=== PATIENT | female | born 1985 | race Caucasian/White ===

== ENCOUNTER 2018-09-09 07:06 | Emergency (ER) | payer OTHER ==
[~2018-09-09] VITALS: Ht 147.3 cm; Wt 46.7 kg
[~2018-09-09 07:06] MED LIST: ACETAMINOPHEN-1 EAC1 PO; CELEXA; CEPHALEXIN 500500 M3 PO; CLEOCIN HCL300 MG PO; DOXYCYCLINE 10100 MG PO; FLAGYL500 MG PO; FLEXERIL PO; HYDROCODONE-AP1 EAC6 PO; IBUPROFEN 800800 M1 PO; KEFLEX500 MG PO; LEXAPRO 10 MG T10 MG PO; MACROBID 100 M100 M1 PO; NAPROSYN500 MG PO; NORCO 5-325 TA1 EACH PO; PREDNISONE 10 M10 MG PO; PREDNISONE 20 M20 MG PO; PREDNISONE50 MG PO; SIMVASTATIN; VICODIN 5-3001 EACH PO; XANAX 0.5 MG0.5 M1 PO
[2018-09-09 07:16] VITALS: BP 131/87
[2018-09-09] MEDS ORDERED: NOHOMEMEDICATIONS (07:20)
[2018-09-09] MEDS ORDERED: HYDROCODON-ACE1 EAC7 PO (07:29)
[2018-09-09] MEDS ORDERED: AUGMENTIN 500-1 EACH PO (07:29)
== END 2018-09-09 07:39 | disposition home or self-care (01) ==
LOC: M.ERS 07:06
DX: H66.93 Otitis media, unspecified, bilateral (principal); F17.210 Nicotine dependence, cigarettes, uncomplicated; Z88.1 Allergy status to other antibiotic agents; Z88.2 Allergy status to sulfonamides; Z88.8 Allergy status to other drugs, medicaments and biological substances

== ENCOUNTER 2019-03-16 11:59 | Emergency (ER) | payer OTHER ==
[~2019-03-16] VITALS: Ht 149.9 cm; Wt 54.4 kg
[~2019-03-16 11:59] MED LIST changes: +AUGMENTIN 500-1 EACH PO; +HYDROCODON-ACE1 EAC7 PO; +NOHOMEMEDICATIONS
[2019-03-16 12:12] LABS: URINE BILIRUBIN NEGATIVE (Negative); URINE BLOOD 2+ (Negative); URINE CLARITY CLEAR; URINE COLOR YELLOW; URINE GLUCOSE-RANDOM NEGATIVE (Negative); URINE KETONES NEGATIVE (Negative); URINE LEUKOCYTES-REFLEX 1+ (Negative); URINE PROTEIN NEGATIVE (Negative)
[2019-03-16 12:13] LABS: URINE NITRITE-REFLEX POSITIVE (Negative)
[2019-03-16] MEDS ORDERED: LIORESAL 10 MG10 MG PO (12:16)
[2019-03-16] MEDS ORDERED: CELEXA40 MG PO (12:16)
[2019-03-16] MEDS ORDERED: LISINOPRIL10 MG PO (12:16)
[2019-03-16] MEDS ORDERED: TRAZODONE HCL100 MG PO (12:16)
[2019-03-16] MEDS ORDERED: ABILIFY20 MG PO (12:16)
[2019-03-16 12:20] LABS: BACTERIA-REFLEX >30 Many /HPF (None Seen); CASTS None Seen /LPF (None Seen); CRYSTALS None Seen /LPF (None Seen); HYALINE CASTS 0-3 Few /LPF (None Seen); MUCUS 0-3 Light strn/LPF (None Seen); SQUAMOUS 0-3 Few /LPF (0-3); URINE RBC 3-10 Few /HPF (0-2)
[2019-03-16 12:32] LABS: ABSOLUTE BASOPHILS 0.1 thou/uL (0.0-0.2); ABSOLUTE EOSINOPHILS 0.2 thou/uL (0.0-0.7); ABSOLUTE LYMPHOCYTES 2.2 thou/uL (0.8-5.3); ABSOLUTE MONOCYTES 0.5 thou/uL (0.0-1.2); ABSOLUTE NEUTROPHILS 4.5 thou/uL (1.6-8.1); EOSINOPHILS 2.2 %; HEMATOCRIT 41.2 % (37.0-47.0); HEMOGLOBIN 14.2 gm/dL (12.0-15.0); LYMPHOCYTES 29.1 %; MCHC 34.5 g/dL (28.0-37.0); MCV 89.9 fL (80.0-100.0); MONOCYTES 7.2 %; MPV 7.2 fl. (7.2-11.1); NUCLEATED RBCS 0 /100WBC; PLATELET COUNT* 451 thou/uL (150-400); POLYS 60.5 %; RBC 4.58 mil/uL (4.20-5.00); RDW-CV 13.7 % (10.5-14.5); WBC 7.5 thou/uL (4.0-11.0)
[2019-03-16 12:50] LABS: CALCIUM 9.1 mg/dL (8.5-10.1); CREATININE 0.7 mg/dL (0.6-1.3); POTASSIUM 3.6 mmol/L (3.5-5.1)
[2019-03-16 12:55] LABS: ALBUMIN 3.7 g/dL (3.4-5.0); TOTAL BILIRUBIN 0.4 mg/dL (<0.1-1.0); TOTAL PROTEIN 7.5 g/dL (6.4-8.2)
[2019-03-16 13:30] LABS: AMP/METHAMP POSITIVE (Negative); BARBITURATES Negative (Negative); BENZODIAZEPINES POSITIVE (Negative); COCAINE Negative (Negative); METHADONE Negative (Negative); OPIATES Negative (Negative); PCP Negative (Negative); THC POSITIVE (Negative)
[2019-03-16] MEDS ORDERED: IBUPROFEN 800800 MG PO (15:25)
[2019-03-16] MEDS ORDERED: AUGMENTIN 500-1 EACH PO ×2 (15:25→15:32)
[2019-03-16] MEDS ORDERED: ZOFRAN ODT4 MG PO ×2 (15:25→15:32)
[2019-03-16] MEDS ORDERED: IBUPROFEN 800800 M1 PO (15:32)
[2019-03-16 15:54] VITALS: BP 106/62
== END 2019-03-16 15:56 | disposition home or self-care (01) ==
LOC: M.ERS 11:59
PROVIDERS: Personal Emergency Response Attendant
DX: N39.0 Urinary tract infection, site not specified (principal); R42 Dizziness and giddiness; F17.210 Nicotine dependence, cigarettes, uncomplicated; F41.0 Panic disorder [episodic paroxysmal anxiety]; Z88.2 Allergy status to sulfonamides; Z88.1 Allergy status to other antibiotic agents; Z88.8 Allergy status to other drugs, medicaments and biological substances; Z87.442 Personal history of urinary calculi

== ENCOUNTER 2019-04-05 22:52 | Emergency (ER) | payer OTHER ==
[~2019-04-05] VITALS: Ht 147.3 cm; Wt 56.7 kg
[~2019-04-05 22:52] MED LIST changes: +ABILIFY20 MG PO; +CELEXA40 MG PO; +IBUPROFEN 800800 MG PO; +LIORESAL 10 MG10 MG PO; +LISINOPRIL10 MG PO; +TRAZODONE HCL100 MG PO; +ZOFRAN ODT4 MG PO
[2019-04-05] MEDS ORDERED: VISTARIL 25 MG25 M1 PO (23:05)
[2019-04-05] MEDS ORDERED: NORCO 5-325 TA1 EACH PO (23:07)
[2019-04-05] MEDS ORDERED: ELIMITE60 GM TOP (23:47)
[2019-04-05 23:51] VITALS: BP 128/93
== END 2019-04-05 23:55 | disposition home or self-care (01) ==
LOC: M.ERS 22:52
DX: T23.252A Burn of second degree of left palm, initial encounter (principal); X19.XXXA Contact with other heat and hot substances, initial encounter; Y93.89 Activity, other specified; Y92.89 Other specified places as the place of occurrence of the external cause; Y99.8 Other external cause status; F17.210 Nicotine dependence, cigarettes, uncomplicated; Z88.2 Allergy status to sulfonamides; Z88.8 Allergy status to other drugs, medicaments and biological substances

== ENCOUNTER 2019-07-18 21:26 | Emergency (ER) | payer OTHER ==
[~2019-07-18] VITALS: Ht 147.3 cm; Wt 52.2 kg
[~2019-07-18 21:26] MED LIST changes: +ELIMITE60 GM TOP; +VISTARIL 25 MG25 M1 PO
[2019-07-18] MEDS ORDERED: PREDNISONE 10 M10 M1 PO (21:36)
[2019-07-18] MEDS ORDERED: DIPHENHIST50 MG PO (21:36)
[2019-07-18 21:49] VITALS: BP 144/98
== END 2019-07-18 21:52 | disposition home or self-care (01) ==
LOC: M.ERS 21:26
DX: L25.9 Unspecified contact dermatitis, unspecified cause (principal); F41.0 Panic disorder [episodic paroxysmal anxiety]; F17.210 Nicotine dependence, cigarettes, uncomplicated; Z88.2 Allergy status to sulfonamides; Z88.1 Allergy status to other antibiotic agents; Z88.8 Allergy status to other drugs, medicaments and biological substances; Z87.442 Personal history of urinary calculi

== ENCOUNTER 2019-10-03 14:59 | Emergency (ER) | payer OTHER ==
[~2019-10-03] VITALS: Ht 147.3 cm; Wt 49.9 kg
[~2019-10-03 14:59] MED LIST changes: +DIPHENHIST50 MG PO; +PREDNISONE 10 M10 M1 PO
[2019-10-03] MEDS ORDERED: TYLENOL WITH CO1 TA1 PO (15:56)
[2019-10-03 16:19] VITALS: BP 137/96
== END 2019-10-03 16:21 | disposition home or self-care (01) ==
LOC: M.ERS 14:59
DX: S63.682A Other sprain of left thumb, initial encounter (principal); F17.210 Nicotine dependence, cigarettes, uncomplicated; Z87.442 Personal history of urinary calculi; Z88.2 Allergy status to sulfonamides; Z88.1 Allergy status to other antibiotic agents; W23.0XXA Caught, crushed, jammed, or pinched between moving objects, initial encounter; Y92.89 Other specified places as the place of occurrence of the external cause; Y93.89 Activity, other specified; Y99.8 Other external cause status

== ENCOUNTER 2020-02-22 23:56 | Inpatient (IN) | payer OTHER ==
[~2020-02-22] VITALS: Ht 147.3 cm; Wt 69.3 kg
[~2020-02-22 23:56] MED LIST changes: +TYLENOL WITH CO1 TA1 PO
[2020-02-23] VITALS (8 sets, daily range): BP systolic 106–132; BP diastolic 71–102
[2020-02-23 00:16] LABS: URINE BILIRUBIN NEGATIVE (Negative); URINE BLOOD TRACE (Negative); URINE COLOR YELLOW; URINE GLUCOSE-RANDOM NEGATIVE (Negative); URINE KETONES TRACE (Negative); URINE LEUKOCYTES-REFLEX NEGATIVE (Negative); URINE PROTEIN TRACE (Negative); URINE SPECIFIC GRAVITY 1.025 (1.005-1.030)
[2020-02-23 00:17] LABS: URINE NITRITE-REFLEX POSITIVE (Negative)
[2020-02-23 00:18] LABS: URINE CLARITY SL CLOUDY
[2020-02-23 00:30] LABS: SQUAMOUS 0-3 Few /LPF (0-3)
[2020-02-23 00:31] LABS: BACTERIA-REFLEX >30 Many /HPF (None Seen); CASTS None Seen /LPF (None Seen); CRYSTALS None Seen /LPF (None Seen); MUCUS 0-3 Light strn/LPF (None Seen); URINE RBC 3-10 Few /HPF (0-2); URINE WBC-REFLEX >25 Many /HPF (0-5); WBC CLUMPS Few (None Seen)
[2020-02-23 00:38] LABS: AMP/METHAMP POSITIVE (Negative); BARBITURATES Negative (Negative); BENZODIAZEPINES POSITIVE (Negative); COCAINE Negative (Negative); METHADONE Negative (Negative); OPIATES Negative (Negative); PCP Negative (Negative); THC POSITIVE (Negative)
[2020-02-23 00:48] LABS: ABSOLUTE BASOPHILS 0.1 thou/uL (0.0-0.2); ABSOLUTE EOSINOPHILS 0.1 thou/uL (0.0-0.7); ABSOLUTE LYMPHOCYTES 2.6 thou/uL (0.8-5.3); ABSOLUTE MONOCYTES 1.3 thou/uL (0.0-1.2); ABSOLUTE NEUTROPHILS 7.1 thou/uL (1.6-8.1); BASOPHILS 0.9 %; HEMATOCRIT 38.3 % (37.0-47.0); HEMOGLOBIN 13.3 gm/dL (12.0-15.0); LYMPHOCYTES 23.6 %; MCH 30.9 pg (26.0-34.0); MCHC 34.7 g/dL (28.0-37.0); MCV 89.3 fL (80.0-100.0); MONOCYTES 11.2 %; MPV 6.9 fl. (7.2-11.1); NUCLEATED RBCS 0 /100WBC; PLATELET COUNT* 522 thou/uL (150-400); POLYS 63.3 %; RBC 4.29 mil/uL (4.20-5.00); WBC 11.2 thou/uL (4.0-11.0)
[2020-02-23 00:56] LABS: CALCIUM 8.5 mg/dL (8.5-10.1); CREATININE 0.6 mg/dL (0.6-1.3); POTASSIUM 3.4 mmol/L (3.5-5.1)
[2020-02-23 01:00] LABS: ALBUMIN 3.3 g/dL (3.4-5.0); TOTAL BILIRUBIN 0.4 mg/dL (<0.1-1.0); TOTAL PROTEIN 7.3 g/dL (6.4-8.2)
[2020-02-23] MEDS ORDERED: CARAFATE 1 GM TA1 GM PO (01:17)
[2020-02-23] MEDS ORDERED: HYDROCODON-ACE1 EAC7 PO (01:28)
[2020-02-23] MEDS ORDERED: LEVAQUIN 500 M500 M3 PO (01:28)
[2020-02-23] MEDS ORDERED: PYRIDIUM200 MG PO (01:28)
[2020-02-24 05:29] LABS: ABSOLUTE BASOPHILS 0.1 thou/uL (0.0-0.2); ABSOLUTE EOSINOPHILS 0.2 thou/uL (0.0-0.7); ABSOLUTE LYMPHOCYTES 2.2 thou/uL (0.8-5.3); ABSOLUTE MONOCYTES 0.7 thou/uL (0.0-1.2); ABSOLUTE NEUTROPHILS 4.1 thou/uL (1.6-8.1); BASOPHILS 1.1 %; EOSINOPHILS 3.2 %; HEMATOCRIT 35.6 % (37.0-47.0); LYMPHOCYTES 30.3 %; MCH 30.7 pg (26.0-34.0); MCHC 33.7 g/dL (28.0-37.0); MONOCYTES 9.2 %; MPV 7.1 fl. (7.2-11.1); NUCLEATED RBCS 0 /100WBC; PLATELET COUNT* 473 thou/uL (150-400); POLYS 56.2 %; RBC 3.91 mil/uL (4.20-5.00); RDW-CV 13.3 % (10.5-14.5); WBC 7.2 thou/uL (4.0-11.0)
[2020-02-24 05:57] LABS: CALCIUM 8.2 mg/dL (8.5-10.1); CREATININE 0.6 mg/dL (0.6-1.3); POTASSIUM 3.9 mmol/L (3.5-5.1)
[2020-02-24 08:41] VITALS: BP 118/83
[2020-02-24 16:00] VITALS: BP 114/77
[2020-02-24 20:00] VITALS: BP 114/73
[2020-02-25] VITALS: BP 123/83
[2020-02-25 08:00] VITALS: BP 127/83
[2020-02-25] MEDS ORDERED: CEFUROXIME500 MG PO (12:22)
[2020-02-25] MEDS ORDERED: TYLENOL EXTRA500 MG PO (12:23)
[2020-02-25 12:26] VITALS: BP 127/83
[2020-02-25 16:13] VITALS: BP 130/95
[2020-02-25 20:46] VITALS: BP 130/80
[2020-02-26 04:07] LABS: ABSOLUTE EOSINOPHILS 0.3 thou/uL (0.0-0.7); ABSOLUTE LYMPHOCYTES 2.7 thou/uL (0.8-5.3); ABSOLUTE MONOCYTES 0.8 thou/uL (0.0-1.2); ABSOLUTE NEUTROPHILS 4.6 thou/uL (1.6-8.1); BASOPHILS 0.2 %; EOSINOPHILS 3.2 %; HEMATOCRIT 40.9 % (37.0-47.0); LYMPHOCYTES 31.8 %; MCH 30.6 pg (26.0-34.0); MCHC 34.3 g/dL (28.0-37.0); MCV 89.3 fL (80.0-100.0); MONOCYTES 9.3 %; NUCLEATED RBCS 0 /100WBC; POLYS 55.5 %; RBC 4.58 mil/uL (4.20-5.00); RDW-CV 13.1 % (10.5-14.5); WBC 8.4 thou/uL (4.0-11.0)
[2020-02-26 04:36] LABS: CALCIUM 9.5 mg/dL (8.5-10.1); CREATININE 0.7 mg/dL (0.6-1.3); POTASSIUM 3.9 mmol/L (3.5-5.1)
[2020-02-26 05:12] LABS: PLATELET COUNT* 583 thou/uL (150-400)
[2020-02-26 08:00] VITALS: BP 113/87
[2020-02-26 17:33] VITALS: BP 143/88
[2020-02-26 20:00] VITALS: BP 118/70
[2020-02-26 23:40] VITALS: BP 92/60
[2020-02-27 08:00] VITALS: BP 120/82
--- NOTE | 2020-02-27 12:01 | CON ---
[address] [address] CONSULTATION Name: LETY CAIN Room: [address] IN [place].#: [id number] Admission: 02/23/20 Attend Phys: Luca Cardenas Discharge: Date of : 87 Report #: [id number] THIS REPORT FOR: //name// cc: ZEINAB Bah family physician/PCP ZEINAB - Niurka family physician/PCP ~ THIS REPORT FOR: //name// CC: ZEINAB physician/PCP Luca Noonan DATE OF SERVICE: 02/26/2020 INFECTIOUS DISEASE CONSULTATION ATTENDING PHYSICIAN: Dr. Chaudhary. REASON FOR EVALUATION: Pyelonephritis secondary to Escherichia coli and has extended spectrum beta-lactamase production, also gonorrhea. HISTORY OF PRESENT ILLNESS: Chart reviewed, the patient examined. This 34-year-old with known history of renal lithiasis and also apparently bipolar disease, who was admitted to the emergency room on 02/23/2020 with complaints of right flank pain. She was evaluated and was noted to have some pyuria. Urine culture as noted above with multiple resistant Escherichia coli also had positive gonorrhea test. She was initially treated empirically with piperacillin, ceftriaxone. This has been transitioned to meropenem. She has some residual right-sided pain. Overall, she does feel improved. She has been afebrile. Denies significant pulmonary-related complaints. Imaging suggested there were no obstruction issues and perhaps a recently passed stone and asymmetrical enlargement of the right kidney with perinephric stranding. ALLERGIES: LISTED TO PROPOXYPHENE, CIPRO, SULFA, similarly more adverse drug effects. CURRENT MEDICATIONS: Include alprazolam, meropenem, temazepam, enoxaparin, hydrocodone, nicotine, pantoprazole, acetaminophen, ondansetron as needed. PAST MEDICAL HISTORY: As noted above, some renal lithiasis, history of tubal ligation, panic attacks, depression. SOCIAL HISTORY: Does use illicit drugs, smokes half pack a day, on occasion drinks alcohol. FAMILY HISTORY: Noncontributory. REVIEW OF SYSTEMS: Denies significant [place] [address] CONSULTATION Name: LETY CAIN Room: [address]#: [id number] Admission: 02/23/20 Attend Phys: Luca Cardenas Discharge: Date of : 87 Report #: [id number] PHYSICAL EXAMINATION: GENERAL: She appears somewhat chronically ill, undernourished, is pleasant, cooperative, in mild distress. VITAL SIGNS: Temperature 98.8, pulse 98, respirations 14, blood pressure 130/80. SKIN: Warm, dry. No rashes. HEENT: Normocephalic. Extraocular muscles intact. NECK: Supple. LUNGS: Diminished breath sounds. HEART: Regular. Borderline tachycardic. I do not appreciate any murmur. ABDOMEN: Soft. There are no peritoneal signs. Does have some right-sided CVA tenderness. GENITOURINARY AND RECTAL: Deferred. LABORATORY DATA: CBC from this morning, white count of 8.4, H and H 14.0 and 40.9, and platelets of 583. Electrolytes: Sodium 139, potassium 3.9, chloride 102, bicarbonate is 25, anion gap of 9, BUN and creatinine 6 and 0.7, estimated GFR of 96 and a negative chlamydia, JAZMIN in the urine. Has a positive GC DNA, JAZMIN in the urine. Chest x-ray, possible subtle infiltrates. Urinalysis or urine culture with E. coli that was in vitro susceptible to aminoglycosides, piperacillin, tazobactam, nitrofurantoin, carbapenems, quinolones and also Augmentin. ASSESSMENT AND PLAN: Complicated urinary tract infection. The patient has known history of renal lithiasis, potentially had passed a stone. We will continue meropenem at least another 24-48 hours, transition to Augmentin prior to her discharge. We will add azithromycin to her regimen as well. I think ceftriaxone likely treated her gonorrhea and see how she does. Increase her activity, optimize her nutrition. We will follow. <ELECTRONICALLY SIGNED> By: Tadeo Louis MD 02/27/20 1201 1145 1228Josecathleen Louis MD /nt
[2020-02-27] MEDS ORDERED: DORYX MPC120 MG PO (12:13)
[2020-02-27] MEDS ORDERED: NORCO 5-325 TA1 EAC1 PO (12:16)
[2020-02-27] MEDS ORDERED: ALPRAZOLAM XR3 MG PO (12:18)
[2020-02-27 12:20] VITALS: BP 127/83
[2020-02-27] MEDS ORDERED: AUGMENTIN 875-1 EACH PO (13:14)
== END 2020-02-27 13:50 | disposition home or self-care (01) | DRG 689 ==
LOC: M.ERS 23:56 → M.TBA-ER 02-23 02:07 → M.2W 02-23 02:07
PROVIDERS: Internal Medicine; Personal Emergency Response Attendant; ADMIT Family Medicine
DX: N10 Acute pyelonephritis (principal); G92 Toxic encephalopathy; A54.9 Gonococcal infection, unspecified; F32.9 Major depressive disorder, single episode, unspecified; F17.210 Nicotine dependence, cigarettes, uncomplicated; F12.90 Cannabis use, unspecified, uncomplicated; E86.0 Dehydration; B96.20 Unspecified Escherichia coli [E. coli] as the cause of diseases classified elsewhere; Z87.442 Personal history of urinary calculi; Z88.1 Allergy status to other antibiotic agents; Z88.2 Allergy status to sulfonamides; Z79.899 Other long term (current) drug therapy

== ENCOUNTER 2020-06-19 16:26 | Emergency (ER) | payer OTHER ==
[~2020-06-19] VITALS: Ht 147.3 cm; Wt 59.0 kg
[~2020-06-19 16:26] MED LIST changes: +ALPRAZOLAM XR3 MG PO; +AUGMENTIN 875-1 EACH PO; +CARAFATE 1 GM TA1 GM PO; +CEFUROXIME500 MG PO; +DORYX MPC120 MG PO; +LEVAQUIN 500 M500 M3 PO; +NORCO 5-325 TA1 EAC1 PO; +PYRIDIUM200 MG PO; +TYLENOL EXTRA500 MG PO
[2020-06-19 17:36] LABS: ABSOLUTE BASOPHILS 0.1 thou/uL (0.0-0.2); ABSOLUTE EOSINOPHILS 0.1 thou/uL (0.0-0.7); ABSOLUTE LYMPHOCYTES 1.9 thou/uL (0.8-5.3); ABSOLUTE MONOCYTES 1.4 thou/uL (0.0-1.2); ABSOLUTE NEUTROPHILS 13.3 thou/uL (1.6-8.1); BASOPHILS 0.6 %; EOSINOPHILS 0.3 %; HEMATOCRIT 41.3 % (37.0-47.0); HEMOGLOBIN 14.2 gm/dL (12.0-15.0); LYMPHOCYTES 11.2 %; MCH 31.7 pg (26.0-34.0); MCHC 34.4 g/dL (28.0-37.0); MCV 92.1 fL (80.0-100.0); MONOCYTES 8.3 %; MPV 7.3 fl. (7.2-11.1); NUCLEATED RBCS 0 /100WBC; PLATELET COUNT* 435 thou/uL (150-400); POLYS 79.6 %; RBC 4.49 mil/uL (4.20-5.00); WBC 16.8 thou/uL (4.0-11.0)
[2020-06-19 17:47] LABS: CALCIUM 8.5 mg/dL (8.5-10.1); CREATININE 0.7 mg/dL (0.6-1.3); POTASSIUM 3.6 mmol/L (3.5-5.1)
[2020-06-19 17:52] LABS: ALBUMIN 4.2 g/dL (3.4-5.0); MAGNESIUM 1.7 mg/dL (1.8-2.4); TOTAL BILIRUBIN 0.7 mg/dL (<0.1-1.0); TOTAL PROTEIN 7.8 g/dL (6.4-8.2)
[2020-06-19 19:47] LABS: URINE BILIRUBIN NEGATIVE (Negative); URINE BLOOD 1+ (Negative); URINE COLOR YELLOW; URINE GLUCOSE-RANDOM NEGATIVE (Negative); URINE KETONES 2+ (Negative); URINE LEUKOCYTES-REFLEX NEGATIVE (Negative); URINE PROTEIN 1+ (Negative); URINE SPECIFIC GRAVITY >= 1.030 (1.005-1.030); URINE UROBILINOGEN 0.2 E.U./dl (0.2-1.0)
[2020-06-19 19:49] LABS: URINE CLARITY HAZY; URINE NITRITE-REFLEX POSITIVE (Negative)
[2020-06-19 19:58] LABS: AMP/METHAMP POSITIVE (Negative); BARBITURATES Negative (Negative); BENZODIAZEPINES Negative (Negative); COCAINE Negative (Negative); METHADONE Negative (Negative); OPIATES Negative (Negative); PCP Negative (Negative); SQUAMOUS >10 Many /LPF (0-3); THC POSITIVE (Negative)
[2020-06-19 19:59] LABS: BACTERIA-REFLEX None Seen /HPF (None Seen); CASTS None Seen /LPF (None Seen); CRYSTALS None Seen /LPF (None Seen); MUCUS 4-6 Moderate strn/LPF (None Seen); URINE RBC 0-2 Rare /HPF (0-2); URINE WBC-REFLEX None Seen /HPF (0-5)
[2020-06-19 21:39] VITALS: BP 129/87
--- NOTE | 2020-06-20 10:12 | EKG ---
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1985 Requested By: Tessa Diaz Order Number: [id number] MD: Jose Whitfield Measurements Intervals [place] Rate: 102 P: 41 PA: 132 QRS: 56 QRSD: 93 T: 19 QT: 338 QTc: 441 Interpretive Statements Sinus tachycardia Baseline wander in lead(s) V2 No previous ECG available for comparison Electronically Signed On 06-20-2020 10:12:22 CDT by Jose Whitfield [email or web address] <ELECTRONICALLY SIGNED> By: Jose Whitfield MD, [facility] 06/20/20 1012 1653 52 Jose Whitfield MD, [facility] /EPI
== END 2020-06-19 21:40 | disposition home or self-care (01) ==
LOC: M.ERS 16:26
PROVIDERS: Personal Emergency Response Attendant
DX: E86.0 Dehydration (principal); R45.851 Suicidal ideations; F32.9 Major depressive disorder, single episode, unspecified; R45.4 Irritability and anger; R42 Dizziness and giddiness; F17.210 Nicotine dependence, cigarettes, uncomplicated; Z87.442 Personal history of urinary calculi; Z98.51 Tubal ligation status; Z79.899 Other long term (current) drug therapy; Z88.2 Allergy status to sulfonamides; Z88.8 Allergy status to other drugs, medicaments and biological substances

== ENCOUNTER 2021-02-02 11:59 | Emergency (ER) | payer OTHER ==
[~2021-02-02] VITALS: Ht 147.3 cm; Wt 63.5 kg
[2021-02-02 12:30] LABS: URINE BILIRUBIN NEGATIVE (Negative); URINE BLOOD NEGATIVE (Negative); URINE CLARITY CLEAR; URINE COLOR YELLOW; URINE GLUCOSE-RANDOM NEGATIVE (Negative); URINE KETONES NEGATIVE (Negative); URINE LEUKOCYTES-REFLEX NEGATIVE (Negative); URINE NITRITE-REFLEX POSITIVE (Negative); URINE PROTEIN NEGATIVE (Negative); URINE SPECIFIC GRAVITY 1.025 (1.005-1.030); URINE UROBILINOGEN 0.2 E.U./dl (0.2-1.0)
[2021-02-02 12:36] LABS: BACTERIA-REFLEX >30 Many /HPF (None Seen); CASTS None Seen /LPF (None Seen); CRYSTALS None Seen /LPF (None Seen); MUCUS 0-3 Light strn/LPF (None Seen); SQUAMOUS 4-10 Moderate /LPF (0-3); URINE RBC 0-2 Rare /HPF (0-2); URINE WBC-REFLEX 0-5 Rare /HPF (0-5)
[2021-02-02 12:49] LABS: ABSOLUTE BASOPHILS 0.1 thou/uL (0.0-0.2); ABSOLUTE EOSINOPHILS 0.2 thou/uL (0.0-0.7); ABSOLUTE LYMPHOCYTES 2.9 thou/uL (0.8-5.3); ABSOLUTE MONOCYTES 0.7 thou/uL (0.0-1.2); ABSOLUTE NEUTROPHILS 8.4 thou/uL (1.6-8.1); BASOPHILS 1.1 %; EOSINOPHILS 1.6 %; HEMATOCRIT 44.3 % (37.0-47.0); HEMOGLOBIN 15.3 gm/dL (12.0-15.0); LYMPHOCYTES 23.5 %; MCH 31.6 pg (26.0-34.0); MCHC 34.5 g/dL (28.0-37.0); MCV 91.8 fL (80.0-100.0); MONOCYTES 5.8 %; MPV 7.3 fl. (7.2-11.1); NUCLEATED RBCS 0 /100WBC; PLATELET COUNT* 545 thou/uL (150-400); RBC 4.82 mil/uL (4.20-5.00); RDW-CV 12.9 % (10.5-14.5); WBC 12.3 thou/uL (4.0-11.0)
[2021-02-02 12:53] LABS: CALCIUM 9.8 mg/dL (8.5-10.1); CREATININE 0.6 mg/dL (0.6-1.3); POTASSIUM 3.9 mmol/L (3.5-5.1)
[2021-02-02 12:57] LABS: ALBUMIN 4.1 g/dL (3.4-5.0); TOTAL BILIRUBIN 0.4 mg/dL (<0.1-1.0); TOTAL PROTEIN 8.5 g/dL (6.4-8.2)
[2021-02-02] MEDS ORDERED: NORCO5 PO (14:01)
[2021-02-02] MEDS ORDERED: IBUPROFEN 800800 M1 PO (14:01)
[2021-02-02] MEDS ORDERED: ZOFRAN ODT4 MG PO (14:01)
[2021-02-02] MEDS ORDERED: KEFLEX500 M1 PO (14:01)
[2021-02-02 14:07] VITALS: BP 123/84
--- NOTE | 2021-02-02 16:46 | EKG ---
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1985 Requested By: Deanna Faye Order Number: [id number] MD: Jose Whitfield Measurements Intervals [place] Rate: 92 P: 48 [place]: 141 QRS: 57 QRSD: 91 T: 29 QT: 341 QTc: 422 Interpretive Statements Sinus rhythm Probable left atrial enlargement Baseline wander in lead(s) V2 Compared to ECG 06/19/2020 16:53:30 Sinus tachycardia no longer present Electronically Signed On 02-02-2021 16:46:16 CDT by Jose Whitfield [email or web address] <ELECTRONICALLY SIGNED> By: Jose Whitfield MD, FAC 02/02/21 1646 1250 1250 Jose Whitfield MD, [facility] /EPI
== END 2021-02-02 14:08 | disposition home or self-care (01) ==
LOC: M.ERS 11:59
PROVIDERS: Nurse Practitioner Family
DX: N39.0 Urinary tract infection, site not specified (principal); R51.9 Headache, unspecified; F17.210 Nicotine dependence, cigarettes, uncomplicated; Z98.51 Tubal ligation status; Z87.442 Personal history of urinary calculi; Z88.1 Allergy status to other antibiotic agents; Z88.2 Allergy status to sulfonamides